=== PATIENT | male | born 1940 | race Caucasian/White ===

== ENCOUNTER → 2021-04-06 | Outpatient (CLI) | payer MEDICARE ==
[~2021-04-06] VITALS: Ht 172.7 cm; Wt 88.9 kg
[~2021-04-06] MED LIST: ALBU8.5H8 IH; AMLO5TAB4 PO; ASPI-1264 PO; CALC250T2 PO; DOCU-28 PO; ERGO400C PO; FERR325T32 PO; LACT-47 PO; LIDOcaine Viscous 15ml cup ONE; MIDAZolam 1 MG/ML 5ML VIAL ONE; MULT-38 PO; NEBI10TA2 PO; OMEP20TA23 PO; WALKERFR; albuterol 2.5 MG/3 ML nebule NEB PRN; diphenhydrAMINE 50 mg/ml inj ONE; fentaNYL/PF 50MCG/1 ML 2ML syringe ONE
== END | disposition home or self-care (01) ==
LOC: RT 14:56
PROVIDERS: ATTEND Internal Medicine Pulmonary Disease
DX: R94.2 Abnormal results of pulmonary function studies (principal); J44.9 Chronic obstructive pulmonary disease, unspecified
CPT/HCPCS: 94060; 94727; 94729; 94760; J1200; J2250; J3010

== ENCOUNTER → 2021-04-11 | Outpatient (CLI) | payer MEDICARE ==
[~2021-04-11] MED LIST changes: -LIDOcaine Viscous 15ml cup ONE; -MIDAZolam 1 MG/ML 5ML VIAL ONE; -albuterol 2.5 MG/3 ML nebule NEB PRN; -diphenhydrAMINE 50 mg/ml inj ONE; -fentaNYL/PF 50MCG/1 ML 2ML syringe ONE
== END | disposition home or self-care (01) ==
LOC: RT 05:37
PROVIDERS: ATTEND Internal Medicine Pulmonary Disease
DX: J44.9 Chronic obstructive pulmonary disease, unspecified (principal)
CPT/HCPCS: 94618